=== PATIENT | male | born 1980 | race Caucasian/White ===

== ENCOUNTER 2021-03-11 11:29 | Emergency (ER) | payer OTHER ==
[~2021-03-11] VITALS: Ht 188 cm; Wt 88.5 kg
[2021-03-11] MEDS ORDERED: Veetids 500500 MG PO (11:49)
[2021-03-16] MEDS ORDERED: CYCL10 PO (10:39)
== END 2021-03-11 12:15 | disposition home or self-care (01) ==
LOC: ER 11:29
DX: K02.9 Dental caries, unspecified (principal)
CPT/HCPCS: 99282

== ENCOUNTER 2021-03-15 19:08 | Emergency (ER) | payer OTHER ==
[~2021-03-15] VITALS: Ht 188 cm; Wt 88.5 kg
[~2021-03-15 19:08] MED LIST: Veetids 500500 MG PO
[2021-03-15] MEDS ORDERED: CYCLOBENZAPRINE5 MG PO (21:19)
[2021-03-16] MEDS ORDERED: CYCL10 PO (10:39)
== END 2021-03-15 21:36 | disposition home or self-care (01) ==
LOC: ER 19:08
DX: M26.602 Left temporomandibular joint disorder, unspecified (principal)
CPT/HCPCS: 96372; 99283-25; A9270; J1885